=== PATIENT | male | born 1985 | race Caucasian/White ===

== ENCOUNTER 2018-12-05 13:09 | Emergency (ER) | payer OTHER ==
[2018-12-05 13:51] VITALS: BP 124/75
--- NOTE | 2018-12-05 14:30 | UC ---
Elbow Pain - HPI Summary HPI Summary: 33 yo male injured his right elbow lifting a stuck lawnmower This occurred yesterday He thinks it dislocated and then popped back in pain initially severe now mild unless he moves arm "a certain way" he his right handed forearm and hand a little numb erendira ulnar aspect marked dorsal hand edema when he woke up today (was wearing an pratima wrap - History of Current Complaint Chief Complaint: UCUpperExtremity Stated Complaint: ELBOW INJURY Time Seen by Provider: 12/05/18 14:15 Hx Obtained From: Patient Onset/Duration: Hours Severity Initially: Severe Severity Currently: Moderate Pain Intensity: 6 Pain Scale Used: 0-10 Numeric Location Of Pain: Is Diffuse Character: Aching, Throbbing, Spasmodic Aggravating Factor(s): Movement, Pulling, Twisting Alleviating Factor(s): Rest Associated Signs And Symptoms: Positive: Swelling, Numbness/Tingling. Negative : Bruising, Fever, Weakness Related History: Similar Episode/Dx as - no prior hx injury - Allergies/Home Medications Allergies/Adverse Reactions: Allergies Allergy/AdvReac Type Severity Reaction Status Date / Time bee venom protein (honey bee) Allergy Swelling Verified 12/05/18 13:52 Of Face,Lips,& Throat Penicillins Allergy Anaphylatic Verified 12/05/18 13:52 Shock hay dust Allergy Unknown Uncoded 12/05/18 13:52 Reaction Details Home Medications: Home Medications Albuterol HFA INHALER* [Ventolin HFA Inhaler*] 2 puff INH BID 12/05/18 [History Confirmed 12/05/18] Citalopram Hydrobromide [Celexa] 5 mg PO DAILY 12/05/18 [History Confirmed 12/05] Dextroamphetamine/Amphetamine [Adderall 30 mg-] 1 tab PO DAILY 12/05/18 [ History Confirmed 12/05/18] PMH/Surg Hx/FS Hx/Imm Hx Previously Healthy: Yes Other History Of: Negative For: HIV, Hepatitis B, Hepatitis C, Anticoagulant Therapy - Surgical History Surgical History: Yes Surgery Procedure, Year, and Place: neck spinal fusion - Family History Known Family History: Positive: Cardiac Disease, Hypertension - Social History Alcohol Use: None Substance Use Type: Marijuana, Prescribed Substance Use Comment - Amount & Last Used: Very frequently Smoking Status (MU): Heavy Every Day Tobacco Smoker Type: Cigarettes Amount Used/How Often: 1 ppd Have You Smoked in the Last Year: Yes Household Exposure Type: Cigarettes - Immunization History Most Recent Tetanus Shot: unknown Review of Systems All Other Systems Reviewed And Are Negative: Yes Constitutional: Positive: Negative Skin: Positive: Negative Eyes: Positive: Negative ENT: Positive: Negative Respiratory: Positive: Negative Cardiovascular: Positive: Negative Gastrointestinal: Positive: Negative Genitourinary: Positive: Negative Motor: Positive: Decreased ROM - Right elbow Musculoskeletal: Positive: Arthralgia - right elbow Neurological: Positive: Negative Psychological: Positive: Negative Physical Exam Triage Information Reviewed: Yes Appearance: Well-Appearing, No Pain Distress, Well-Nourished Vital Signs: Initial Vital Signs Temp 98.9 F 12/05/18 13:45 Pulse 84 12/05/18 13:45 Resp 18 12/05/18 13:45 BP 124/75 12/05/18 13:45 Pulse Ox 96 12/05/18 13:45 Vital Signs Reviewed: Yes Eyes: Positive: Conjunctiva Clear ENT: Positive: Hearing grossly normal. Negative: Nasal congestion, Nasal drainage, Trismus, Muffled voice, Hoarse voice, Sinus tenderness Dental Exam: Normal Neck: Positive: Supple, Nontender, No Lymphadenopathy Respiratory: Positive: Lungs clear, Normal breath sounds, No respiratory distress, No accessory muscle use Cardiovascular: Positive: RRR, No Murmur Musculoskeletal: Positive: ROM Limited @ - right elbow pain with extension/pain with supination Neurological: Positive: Alert Psychological Exam: Normal Skin Exam: Normal Diagnostics - Radiology No standard instances Radiology Interpretation Completed By: Radiologist Summary of Radiographic Findings: no fx, no fat pad Elbow Pain Course/Dx - Differential Dx/Diagnosis Provider Diagnosis: Injury of right elbow Discharge - Sign-Out/Discharge Documenting (check all that apply): Patient Departure All imaging exams completed and their final reports reviewed: Yes - Discharge Plan Condition: Stable Disposition: HOME Patient Education Materials: Elbow Sprain (ED) Forms: *Work Release Referrals: Demetrius Castro MD [Medical Doctor] - As Soon As Possible Additional Instructions: Your xr showed no fracture Given your history I am concerned that you may have subluxed (partial dislocation) or dislocated your elbow with it reducing on it's own ice twice daily advil or aleve don't wear pratima while asleep no lifting > 5 pound with right arm until cleared - Billing Disposition and Condition Condition: STABLE Disposition: Home
== END 2018-12-05 15:10 | disposition home or self-care (01) ==
LOC: UCEAST 13:09
DX: S59.901A Unspecified injury of right elbow, initial encounter (principal); X50.0XXA Overexertion from strenuous movement or load, initial encounter; Y92.9 Unspecified place or not applicable; Z91.030 Bee allergy status; Z88.0 Allergy status to penicillin; Z91.09 Other allergy status, other than to drugs and biological substances; F17.210 Nicotine dependence, cigarettes, uncomplicated
CPT/HCPCS: 99211; G0463